=== PATIENT | female | born 1970 | race African-American/Black ===

== ENCOUNTER 2016-12-11 21:08 | Emergency (ER) | payer BC ==
[~2016-12-11] VITALS: Ht 160 cm; Wt 98.4 kg
[2016-12-11] MEDS ORDERED: MOTRIN600 MG PO (23:31)
[2016-12-11] MEDS ORDERED: ULTRAM50 MG PO (23:31)
[2016-12-11] MEDS ORDERED: AMOXICILLIN875 MG PO (23:31)
[2016-12-11 23:40] VITALS: BP 157/95
== END 2016-12-11 23:43 | disposition home or self-care (01) ==
LOC: EXP 21:08 → EME 21:08 → EXP 23:43
DX: K08.89 Other specified disorders of teeth and supporting structures (principal); K05.10 Chronic gingivitis, plaque induced; E11.9 Type 2 diabetes mellitus without complications
CPT/HCPCS: 99281; 99284